=== PATIENT | female | born 1945 | race African-American/Black ===

== ENCOUNTER 2018-01-18 06:44 | Inpatient (IN) | payer OTHER, MEDICARE ==
[~2018-01-18] VITALS: Ht 175.3 cm; Wt 78.9 kg
[2018-01-18 08:00] LABS: BASOPHILS % 0.5 % (0.0-2.0); EOSINOPHILS % 0.8 % (0.0-5.0); HEMATOCRIT. 37.6 % (36.0-48.0); HEMOGLOBIN. 12.5 g/dL (12.0-16.0); LYMPHOCYTES % 18.2 % (20.0-50.0); MEAN CORPUSCULAR HEMOGLOBIN 27.1 pg (28.0-32.0); MEAN CORPUSCULAR VOLUME 81.2 fL (81.0-99.0); MEAN PLATELET VOLUME 8.7 fl (7.4-10.4); MONOCYTES % 7.9 % (2.0-8.0); NEUTROPHILS % 72.6 % (40.0-76.0); PLATELET 293 x1000/uL (130-400); RED BLOOD CELL COUNT 4.63 mill/uL (4.2-5.4); RED CELL DISTRIBUTION WIDTH 13.5 % (11.6-14.6)
[2018-01-18] MEDS ORDERED: TETANUS, DIPHTHERIA, PERTUSSIS VAC/PF 0.5ML (>7YR OLD) IM ONE (08:00)
[2018-01-18 08:12] LABS: CHLORIDE 101 mEq/L (98-107)
[2018-01-18] MEDS ORDERED: MORPHINE SULFATE 4 MG/ML CPJ (NOT FOR IM USE) IV ONE (13:15)
[2018-01-18] MEDS ORDERED: KETOROLAC 30MG/ML VIAL IV ONE (13:15)
[2018-01-18] MEDS ORDERED: GUAIFENESIN 200MG/10ML SUGAR FREE UDC PO PRN (15:00)
[2018-01-18] MEDS ORDERED: ENOXAPARIN 40MG/0.4ML SYR SUBCUT SCH (15:00)
[2018-01-18] MEDS ORDERED: ZOLPIDEM TARTRATE 5MG TABLET PO PRN (15:00)
[2018-01-18] MEDS ORDERED: IPRATROPIUM/ALBUTEROL 0.5-3(2.5)MG/3ML NEB INH PRN (15:00)
[2018-01-18] MEDS ORDERED: CLONIDINE 0.1MG TABLET PO PRN (15:00)
[2018-01-18] MEDS ORDERED: LORAZEPAM 0.5MG TABLET PO PRN (15:00)
[2018-01-18] MEDS ORDERED: ACETAMINOPHEN 325MG TABLET PO PRN (15:00)
[2018-01-18] MEDS ORDERED: NA PHOS,M-B/NA PHOS,DI-BA ENEMA 118ML PR PRN (15:00)
[2018-01-18] MEDS ORDERED: MAGNESIUM/ALUMINUM HYDROXIDE/SIMETHICONE 30ML UDC PO PRN (15:00)
[2018-01-18] MEDS ORDERED: NITROGLYCERIN 0.4MG TABLET SL SL PRN (15:00)
[2018-01-18 20:55] VITALS: BP 140/64
[2018-01-18 21:00] VITALS: BP 140/64
[2018-01-18] MEDS ORDERED: ATORVASTATIN CALCIUM 10MG TABLET PO SCH (21:00)
[2018-01-18] MEDS: TRAMADOL 50MG TABLET PO PRN (23:29)
[2018-01-18] MEDS: ENOXAPARIN 40MG/0.4ML SYR SUBCUT SCH (23:30)
[2018-01-18 23:55] LABS: CREATINE KINASE 111 IU/L (26-192); CREATINE KINASE MB FRACTION 0.9 ng/mL (0.5-3.6)
[2018-01-19] VITALS: BP 129/67
[2018-01-19 04:00] VITALS: BP 117/55
[2018-01-19] MEDS ORDERED: ATOR10TA69 PO (06:46)
[2018-01-19] MEDS ORDERED: LEVO112T7 PO (06:46)
[2018-01-19] MEDS ORDERED: OLME1TAB30 PO (06:46)
[2018-01-19] MEDS ORDERED: ATOR20TA PO (06:50)
[2018-01-19 08:00] VITALS: BP 137/65
[2018-01-19 08:43] LABS: CREATINE KINASE 95 IU/L (26-192); CREATINE KINASE MB FRACTION < 0.5 ng/mL (0.5-3.6)
[2018-01-19] MEDS: ASPIRIN 325MG EC TABLET PO SCH (08:50)
[2018-01-19] MEDS: LEVOTHYROXINE SODIUM 112MCG TABLET PO SCH (08:51)
[2018-01-19] MEDS ORDERED: ATORVASTATIN CALCIUM 10MG TABLET PO SCH (09:00)
[2018-01-19] MEDS ORDERED: LEVOTHYROXINE SODIUM 112MCG TABLET PO SCH (09:00)
[2018-01-19] MEDS: TRAMADOL 50MG TABLET PO PRN ×2 (09:50→20:32)
[2018-01-19] MEDS ORDERED: CEFTRIAXONE 1 G PREMIX 50 ML IV SCH (11:00)
[2018-01-19] MEDS ORDERED: ACETAMINOPHEN 325MG TABLET PO PRN (11:00)
[2018-01-19] MEDS ORDERED: ONDANSETRON HCL 4MG/2ML VIAL IV PRN (11:00)
[2018-01-19] MEDS ORDERED: SODIUM CHLORIDE 0.9% 1,000 ML IV SCH (11:00)
[2018-01-19] MEDS ORDERED: KETOROLAC 30MG/ML VIAL IV PRN (11:00)
[2018-01-19 12:00] VITALS: BP 127/58
[2018-01-19 16:00] VITALS: BP_SYST 134; BP_SYST 137; BP_DIAS 62; BP_DIAS 64
[2018-01-19 20:00] VITALS: BP 137/53
[2018-01-19] MEDS: ATORVASTATIN CALCIUM 20MG TABLET PO SCH (20:32)
[2018-01-19] MEDS: ENOXAPARIN 40MG/0.4ML SYR SUBCUT SCH (21:30)
[2018-01-20] VITALS: BP 129/60
[2018-01-20] MEDS: TRAMADOL 50MG TABLET PO PRN ×2 (03:04→20:24)
[2018-01-20 04:00] VITALS: BP 121/64
[2018-01-20] MEDS: LEVOTHYROXINE SODIUM 112MCG TABLET PO SCH (06:12)
[2018-01-20 08:00] VITALS: BP 123/59
[2018-01-20] MEDS: ASPIRIN 325MG EC TABLET PO SCH (08:44)
[2018-01-20] MEDS ORDERED: ENOXAPARIN 40MG/0.4ML SYR SUBCUT SCH (09:00)
[2018-01-20] MEDS ORDERED: OMEPRAZOLE 20MG CAPSULE EXTENDED RELEASE PO SCH (09:00)
[2018-01-20] MEDS: ONDANSETRON HCL 4MG/2ML VIAL IV PRN (09:25)
[2018-01-20 12:00] VITALS: BP 124/54
[2018-01-20 16:00] VITALS: BP 126/64
[2018-01-20 20:00] VITALS: BP 115/64
[2018-01-20] MEDS: ATORVASTATIN CALCIUM 20MG TABLET PO SCH (20:59)
[2018-01-20] MEDS: ENOXAPARIN 40MG/0.4ML SYR SUBCUT SCH (21:00)
[2018-01-21] VITALS: BP 133/63
[2018-01-21 04:00] VITALS: BP 129/62
[2018-01-21] MEDS: LEVOTHYROXINE SODIUM 112MCG TABLET PO SCH (06:14)
[2018-01-21] MEDS: DOCUSATE SODIUM 100MG CAPSULE PO PRN (06:14)
[2018-01-21 08:00] VITALS: BP 121/53
[2018-01-21] MEDS: ASPIRIN 325MG EC TABLET PO SCH (08:25)
[2018-01-21 12:00] VITALS: BP 127/58
[2018-01-21 16:00] VITALS: BP 122/60
[2018-01-21 20:00] VITALS: BP 117/63
[2018-01-21] MEDS: ATORVASTATIN CALCIUM 20MG TABLET PO SCH (20:58)
[2018-01-21] MEDS: TRAMADOL 50MG TABLET PO PRN (21:08)
[2018-01-21] MEDS: ENOXAPARIN 40MG/0.4ML SYR SUBCUT SCH (21:08)
[2018-01-22] VITALS: BP 147/67
[2018-01-22] MEDS: MORPHINE SULFATE 4 MG/ML CPJ (NOT FOR IM USE) IV PRN (00:19)
[2018-01-22] MEDS: ONDANSETRON HCL 4MG/2ML VIAL IV PRN (00:23)
[2018-01-22] MEDS: DIPHENHYDRAMINE 50MG/ML VIAL IV PRN (00:23)
[2018-01-22 04:00] VITALS: BP 137/63
[2018-01-22 07:45] VITALS: BP 126/64
[2018-01-22] MEDS: LEVOTHYROXINE SODIUM 112MCG TABLET PO SCH (08:25)
[2018-01-22] MEDS: ASPIRIN 325MG EC TABLET PO SCH (08:25)
[2018-01-22 12:00] VITALS: BP 126/61
[2018-01-22] MEDS: TRAMADOL 50MG TABLET PO PRN (13:58)
[2018-01-22 16:00] VITALS: BP 117/60
[2018-01-22 20:00] VITALS: BP 124/57
[2018-01-22] MEDS: HYDROCODONE/ACETAMINOPHEN 10/325MG TABLET PO PRN (21:12)
[2018-01-22] MEDS: ENOXAPARIN 40MG/0.4ML SYR SUBCUT SCH (21:13)
[2018-01-22] MEDS: ATORVASTATIN CALCIUM 20MG TABLET PO SCH (21:13)
[2018-01-23] VITALS (7 sets, daily range): BP systolic 129–155; BP diastolic 57–76
[2018-01-23] MEDS: LEVOTHYROXINE SODIUM 112MCG TABLET PO SCH (06:42)
[2018-01-23 07:14] LABS: HEMATOCRIT 33.5 % (36.0-48.0); HEMOGLOBIN 11.4 g/dL (12.0-16.0); MEAN CORPUSCULAR HEMOGLOBIN 27.3 pg (28.0-32.0); MEAN CORPUSCULAR VOLUME 80.5 fL (81.0-99.0); PLATELET 245 x1000/uL (130-400); RED BLOOD CELL COUNT 4.16 mill/uL (4.2-5.4); RED CELL DISTRIBUTION WIDTH 13.1 % (11.6-14.6)
[2018-01-23] MEDS: ASPIRIN 325MG EC TABLET PO SCH (08:43)
[2018-01-23] MEDS: MORPHINE SULFATE 4 MG/ML CPJ (NOT FOR IM USE) IV PRN (12:46)
[2018-01-23] MEDS: ONDANSETRON HCL 4MG/2ML VIAL IV PRN (12:54)
[2018-01-23] MEDS: ENOXAPARIN 40MG/0.4ML SYR SUBCUT SCH (21:06)
[2018-01-23] MEDS: HYDROCODONE/ACETAMINOPHEN 10/325MG TABLET PO PRN (21:06)
[2018-01-23] MEDS: DOCUSATE SODIUM 100MG CAPSULE PO PRN (21:06)
[2018-01-23] MEDS: ATORVASTATIN CALCIUM 20MG TABLET PO SCH (21:06)
[2018-01-24] MEDS: DIPHENHYDRAMINE 50MG/ML VIAL IV PRN ×2 (00:12→21:55)
[2018-01-24 04:00] VITALS: BP 140/72
[2018-01-24] MEDS: LEVOTHYROXINE SODIUM 112MCG TABLET PO SCH (06:19)
[2018-01-24 08:00] VITALS: BP 134/63
[2018-01-24] MEDS: ASPIRIN 325MG EC TABLET PO SCH (08:57)
[2018-01-24 12:00] VITALS: BP 140/64
[2018-01-24 16:00] VITALS: BP 126/61
[2018-01-24 20:00] VITALS: BP 136/61
[2018-01-24] MEDS: HYDROCODONE/ACETAMINOPHEN 10/325MG TABLET PO PRN (21:10)
[2018-01-24] MEDS: ATORVASTATIN CALCIUM 20MG TABLET PO SCH (21:55)
[2018-01-24] MEDS: DOCUSATE SODIUM 100MG CAPSULE PO PRN (21:55)
[2018-01-24] MEDS: ENOXAPARIN 40MG/0.4ML SYR SUBCUT SCH (21:55)
[2018-01-25] VITALS: BP 145/67
[2018-01-25 04:00] VITALS: BP 154/78
[2018-01-25] MEDS: LEVOTHYROXINE SODIUM 112MCG TABLET PO SCH (06:34)
[2018-01-25 07:50] VITALS: BP 141/71
[2018-01-25] MEDS: ASPIRIN 325MG EC TABLET PO SCH (09:20)
[2018-01-25 10:39] VITALS: BP 141/71
== END 2018-01-25 12:37 | disposition home or self-care (01) | DRG 563 ==
LOC: ER 06:44 → 8WST 13:13 → SUPCPDRO 14:51 → ENRESERV 19:51
PROVIDERS: ADMIT Internal Medicine; ATTEND Internal Medicine
PROC: 2W3QX2Z Immobilization of Right Lower Leg using Cast (ICD-10-PCS; principal; 2018-01-18)
DX: S82.64XA Nondisplaced fracture of lateral malleolus of right fibula, initial encounter for closed fracture (principal); E03.9 Hypothyroidism, unspecified; R55 Syncope and collapse; W18.39XA Other fall on same level, initial encounter; E78.00 Pure hypercholesterolemia, unspecified; Z79.82 Long term (current) use of aspirin; Y93.89 Activity, other specified; Y92.89 Other specified places as the place of occurrence of the external cause; Y99.8 Other external cause status; Z88.8 Allergy status to other drugs, medicaments and biological substances; Z79.899 Other long term (current) drug therapy
CPT/HCPCS: 12011; 36415; 70551; 73610; 73721; 80053; 80061; 82550; 82553; 83036; 84443; 84484; 85025; 85027; 87077; 87086; 90471; 90715; 93005; 93306; 93970; 96374; 96375; 97116; 97161; 97166; 97530; 97535; 97760; 99285; J1200; J1650; J1885; J2270; J2405